=== PATIENT | female | born 1985 | race Caucasian/White ===

== ENCOUNTER 2023-01-13 13:18 | Emergency (ER) | payer BC ==
[~2023-01-13] VITALS: Ht 177.8 cm; Wt 132.1 kg
[2023-01-13 13:21] VITALS: BP 143/75
== END 2023-01-13 16:22 | disposition home or self-care (01) ==
LOC: M ED 13:18
DX: F32.A Depression, unspecified (principal); F41.9 Anxiety disorder, unspecified; Z88.1 Allergy status to other antibiotic agents; Z88.2 Allergy status to sulfonamides; Z91.013 Allergy to seafood